=== PATIENT | male | born 1975 ===

== ENCOUNTER 2022-07-24 13:43 | Emergency (ER) | payer SELFPAY ==
[~2022-07-24] VITALS: Ht 193 cm; Wt 72.6 kg
[2022-07-24 13:52] VITALS: BP 121/83
--- NOTE | 2022-07-24 13:52 | NUR ---
SAMSON SWARTZ AMBULATED TO [facility]
--- NOTE | 2022-07-24 14:00 | NUR ---
47/M BIBA FROM STREET C/O AUDITORY AND VISUAL HALLUCINATION. PT REFUSED TO SPECIFY WHAT HE IS HALLUCINATING. PT DENIES SI OR HARM TO OTHERS. AAO4, GCS 15, AMBULATORY. VITALS STABLE. PT STATES HE HAS BEEN OFF MEDS FOR SCHIZO FOR A LONG TIME. PMH: SCHIZO NKA
[2022-07-24] MEDS ORDERED: risperiDONE 1 MG TAB PO STA (17:29)
[2022-07-24] MEDS ORDERED: RISP2TAB52 PO (17:31)
--- NOTE | 2022-07-24 17:39 | NUR ---
PT LEFT PRIOR TO DC INSTRUCTIONS. PT CALLED FROM [facility], PT REFUSED TO SIGN PAPER, PT LEFT BEFORE MEDICATION ADMIN, STATING I JUST WANT TO LEAVE. ERMD AWARE. PT LEFT AMBULATING IN STEADY GAIT. 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
== END 2022-07-24 17:39 | disposition home or self-care (01) ==
LOC: MED 13:43
DX: F20.9 Schizophrenia, unspecified (principal)
CPT/HCPCS: 99283